=== PATIENT | female | born 1970 | race Native Hawaiian/Other Pacific Islander ===

== ENCOUNTER 2017-10-15 17:16 | Outpatient (CLI) | payer BC, OTHER ==
[2017-10-15] MEDS ORDERED: NIFE30TA PO (17:36)
[2017-10-15] MEDS ORDERED: ARMOUR THYROID15 MG PO (17:36)
[2017-10-15] MEDS ORDERED: VENLAFAXINE150 M1 PO (17:37)
[2017-10-15] MEDS ORDERED: ATEN50TA36 PO (17:37)
== END 2017-10-15 17:20 | disposition short-term general hospital (02) ==
LOC: AMB 17:16
DX: R07.89 Other chest pain (principal); R07.81 Pleurodynia; V49.59XA Passenger injured in collision with other motor vehicles in traffic accident, initial encounter; Y92.414 Local residential or business street as the place of occurrence of the external cause
CPT/HCPCS: A0425; A0427

== ENCOUNTER 2017-10-15 17:22 | Emergency (ER) | payer BC, OTHER ==
[~2017-10-15] VITALS: Ht 157.5 cm; Wt 83.9 kg
[2017-10-15] MEDS ORDERED: ARMOUR THYROID15 MG PO (17:36)
[2017-10-15] MEDS ORDERED: NIFE30TA PO (17:36)
[2017-10-15] MEDS ORDERED: ATEN50TA36 PO (17:37)
[2017-10-15] MEDS ORDERED: VENLAFAXINE150 M1 PO (17:37)
[2017-10-15 17:40] VITALS: TEMP 98.6
[2017-10-15 20:01] VITALS: BP 124/78
== END 2017-10-15 21:14 | disposition home or self-care (01) ==
LOC: ED 17:22
DX: S20.212A Contusion of left front wall of thorax, initial encounter (principal); V43.62XA Car passenger injured in collision with other type car in traffic accident, initial encounter
CPT/HCPCS: 96374; 99284; J1885